=== PATIENT | female | born 1960 | race Caucasian/White ===

== ENCOUNTER 2024-04-21 14:44 | Inpatient (IN) | payer SELFPAY ==
[~2024-04-21] VITALS: Ht 154.9 cm; Wt 70.9 kg
[2024-04-21 15:37] LABS: BASOPHILS # (AUTO) 0.05 K/uL (0.00-0.20); BASOPHILS % (AUTO) 0.4 % (0.0-5.0); EOSINOPHILS # (AUTO) 0.02 K/uL (0.00-0.70); EOSINOPHILS % (AUTO) 0.2 % (0.0-8.0); HEMATOCRIT 44.4 % (36-48); IMMATURE GRANULOCYTE ABSOLUTE 0.09 K/uL (0-1); LYMPHOCYTES # (AUTO) 2.7 K/uL (1.0-4.8); LYMPHOCYTES % (AUTO) 20.6 % (21.0-51.0); MEAN CORPUSCULAR HEMOGLOBIN 31.3 pg (27.0-33.0); MEAN CORPUSCULAR HGB CONC 33.1 g/dL (32.0-36.0); MEAN CORPUSCULAR VOLUME 94.7 fL (79-99); MONOCYTES # (AUTO) 0.8 K/uL (0.1-1.0); MONOCYTES % (AUTO) 6.5 % (3.0-13.0); NEUTROPHILS # (AUTO) 9.2 K/uL (1.8-7.7); NEUTROPHILS % (AUTO) 71.6 % (40.0-77.0); PLATELET COUNT (AUTO) 489 K/uL (130-400); RED BLOOD CELL COUNT(AUTO) 4.69 MIL/uL (4.00-5.50); RED CELL DISTRIBUTION WIDTH 13.3 % (11.0-15.5); WHITE BLOOD COUNT (AUTO) 12.9 K/uL (4.8-10.8)
[2024-04-21 15:45] LABS: CREATININE 0.8 mg/dL (0.5-1.0); POTASSIUM 3.9 mmol/L (3.5-5.1)
[2024-04-21 16:01] LABS: B-TYPE NATRIURETIC PEPTIDE 9 pg/mL (0-100)
[2024-04-21] MEDS: FAMOTIDINE 20MG VIAL IV ONE (16:09)
[2024-04-21] MEDS: ONDANSETRON 4MG INJ IVP ONE (16:09)
[2024-04-21] MEDS: 0.9%NACL 1000ML 1,000 ML IV ONE (16:09)
[2024-04-21] MEDS: MORPHINE 2 MG SYG IVP ONE (16:09)
[2024-04-21 16:41] LABS: ABG BASE EXCESS -21.5 mmol/L (-2.0-3.0); ABG HCO3 5.4 mmol/L (21.0-28.0); ABG OXYGEN SATURATION 96.7 % (95.0-99.0); ABG PCO2 17 mmHg (32-45); PO2, ARTERIAL BG 110.7 mmHg (83.0-108.0); VENT MODE, BG RA (ROOM AIR)
[2024-04-21 16:44] LABS: ALCOHOL, BLOOD 4 mg/dL (0-10)
[2024-04-21 16:49] LABS: SALICYLATE < 2.8 mg/dL (2.8-20.0)
[2024-04-21] MEDS: POTASSIUM CHLORIDE 10MEQ/100ML 100 ML IV PRN (16:53)
[2024-04-21] MEDS: 0.9%NACL 1000ML 1,000 ML IV SCH (16:54)
[2024-04-21 17:20] LABS: CREATININE 0.7 mg/dL (0.5-1.0); POTASSIUM 3.8 mmol/L (3.5-5.1)
[2024-04-21] MEDS: D5W-1/2 NS/20MEQ KCL 1,000 ML IV SCH (17:39)
[2024-04-21] MEDS: INSULIN REGULAR, HUMAN 3ML 100 UNIT in 0.9%NACL 100ML 100 ML IV SCH (17:40)
[2024-04-21 18:19] LABS: HEMOGLOBIN A1C 9.5 % (4.0-6.0)
[2024-04-21 18:22] LABS: APPEARANCE,URINE CLEAR (CLEAR); BILIRUBIN,URINE NEGATIVE (NEGATIVE); COLOR,URINE COLORLESS (YELLOW); GLUCOSE, URINE (UA) >=1000 mg/dL (NEGATIVE); KETONES,URINE 150 mg/dL (NEGATIVE); LEUKOCYTE ESTERASE ,URINE NEGATIVE Leu/uL (NEGATIVE); NITRATE,URINE NEGATIVE (NEGATIVE); PROTEIN,URINE 20 mg/dL (NEGATIVE); UROBILINOGEN,URINE 0.2 mg/dL (0.2-1.0)
[2024-04-21] MEDS ORDERED: OMEP40CA21 PO (18:29)
[2024-04-21] MEDS ORDERED: EMPA25TA PO (18:29)
[2024-04-21] MEDS ORDERED: INSREG SQ (18:29)
[2024-04-21] MEDS ORDERED: DULO60CA64 PO (18:29)
[2024-04-21] MEDS ORDERED: ATOR40TA71 PO (18:29)
[2024-04-21] MEDS ORDERED: LIRA0.6P2 SQ (18:29)
[2024-04-21] MEDS ORDERED: AMLO5TAB4 PO (18:29)
[2024-04-21 18:31] LABS: THYROID STIMULATING HORMONE 1.05 uIU/mL (0.36-3.74)
[2024-04-21 18:38] LABS: ADD UA MICROSCOPIC YES
[2024-04-21 18:40] LABS: MUCUS,URINE RARE LPF (None Seen); SQUAMOUS EPITHELIAL CELL,UR RARE /HPF (0-2)
[2024-04-21 18:53] LABS: SARS-CoV-2, RNA, NAAT NEGATIVE SARS CoV-2 (NEGATIVE)
[2024-04-21 18:57] LABS: INFLUENZA TYPE A Negative For Type A (NEGATIVE); INFLUENZA TYPE B Negative For Type B (NEGATIVE)
[2024-04-21 21:03] LABS: CREATININE 0.7 mg/dL (0.5-1.0); POTASSIUM 3.8 mmol/L (3.5-5.1)
[2024-04-21 22:33] VITALS: BP 138/57; PULSE 74; RESP 19
[2024-04-21 22:45] VITALS: BP 133/65; PULSE 83; RESP 18
[2024-04-21 23:00] VITALS: BP 148/57; PULSE 73; RESP 18; O2SAT 98
[2024-04-21 23:15] VITALS: BP 135/49; PULSE 72; RESP 19
[2024-04-21 23:30] VITALS: BP 136/49; PULSE 72; RESP 18
[2024-04-21 23:45] VITALS: BP 141/55; PULSE 71; RESP 19
[2024-04-21 23:58] LABS: CREATININE 0.6 mg/dL (0.5-1.0); POTASSIUM 4.1 mmol/L (3.5-5.1)
[2024-04-22] VITALS (55 sets, daily range): BP systolic 117–165; BP diastolic 53–79; PULSE 66–82; RESP 12–24; O2SAT 97–98
[2024-04-22 01:43] LABS: TRIGLYCERIDES 136 mg/dL (30-200)
[2024-04-22 01:43] LABS: ABG BASE EXCESS -18.3 mmol/L (-2.0-3.0); ABG HCO3 8.1 mmol/L (21.0-28.0); ABG OXYGEN SATURATION 96.5 % (95.0-99.0); ABG PCO2 23 mmHg (32-45); ABG PH 7.176 (7.35-7.450); PO2, ARTERIAL BG 104.1 mmHg (83.0-108.0); VENT MODE, BG RA (ROOM AIR)
[2024-04-22] MEDS: SODIUM BICARB 50MEQ 50ML VIAL IV ONE (02:30)
[2024-04-22] MEDS: SODIUM BICARB 50MEQ 50ML VIAL 50 ML ONE (02:52)
[2024-04-22] MEDS ORDERED: MAGNESIUM 2GM PREMIX 50ML 50 ML IV PRN (03:00)
[2024-04-22 04:30] LABS: CREATININE 0.5 mg/dL (0.5-1.0); MAGNESIUM 1.7 mg/dL (1.80-2.40)
[2024-04-22 05:26] LABS: ABG BASE EXCESS -16.5 mmol/L (-2.0-3.0); ABG HCO3 8.7 mmol/L (21.0-28.0); ABG PCO2 21 mmHg (32-45); CARBON MONOXIDE 0.9; VENT MODE, BG RA (ROOM AIR)
[2024-04-22 07:32] LABS: CREATININE 0.6 mg/dL (0.5-1.0); POTASSIUM 3.7 mmol/L (3.5-5.1)
[2024-04-22] MEDS: MAGNESIUM 2GM PREMIX 50ML 50 ML IV SCH (09:03)
[2024-04-22] MEDS: ENOXAPARIN SODIUM 30 MG/0.3 ML SQ SCH (09:03)
[2024-04-22] MEDS: POTASSIUM CHLORIDE 10% ELIXIR 20 MEQ/15 ML UDCUP PO PRN (09:20)
[2024-04-22] MEDS: POTASSIUM CHLORIDE 10% ELIXIR 20 MEQ/15 ML UDCUP ONE (09:20)
[2024-04-22] MEDS ORDERED: LACTATED RINGERS 1000ML 1,000 ML IV SCH (11:30)
[2024-04-22 12:11] LABS: CREATININE 0.6 mg/dL (0.5-1.0); POTASSIUM 3.5 mmol/L (3.5-5.1)
[2024-04-22] MEDS: KCL 20 MEQ ERTAB PO PRN (14:50)
[2024-04-22 15:32] LABS: CREATININE 0.6 mg/dL (0.5-1.0); POTASSIUM 3.4 mmol/L (3.5-5.1)
[2024-04-22] MEDS: POTASSIUM CHLORIDE 20MEQ/100ML 100 ML IV PRN (17:58)
[2024-04-22] MEDS: D5W-1/2 NS/20MEQ KCL 1,000 ML IV SCH (17:58)
[2024-04-22 19:44] LABS: CREATININE 0.5 mg/dL (0.5-1.0); POTASSIUM 3.3 mmol/L (3.5-5.1)
[2024-04-22] MEDS: ATORVASTATIN 40 MG TABLET PO SCH (20:14)
[2024-04-22] MEDS: ZOSYN 3.375GM +NS 50ML IV SCH (23:12)
[2024-04-22 23:31] LABS: CREATININE 0.5 mg/dL (0.5-1.0); POTASSIUM 3.8 mmol/L (3.5-5.1)
[2024-04-23] VITALS (21 sets, daily range): BP systolic 112–157; BP diastolic 60–83; PULSE 64–89; RESP 11–22; O2SAT 98
[2024-04-23 03:49] LABS: HEMATOCRIT 35.3 % (36-48); MEAN CORPUSCULAR HEMOGLOBIN 32.4 pg (27.0-33.0); MEAN CORPUSCULAR HGB CONC 35.7 g/dL (32.0-36.0); MEAN CORPUSCULAR VOLUME 90.7 fL (79-99); RED BLOOD CELL COUNT(AUTO) 3.89 MIL/uL (4.00-5.50); RED CELL DISTRIBUTION WIDTH 13.3 % (11.0-15.5); WHITE BLOOD COUNT (AUTO) 9.6 K/uL (4.8-10.8)
[2024-04-23 04:21] LABS: ALBUMIN 2.7 g/dL (3.5-5.0); BILIRUBIN,TOTAL 0.7 mg/dL (0.2-1.0); CREATININE 0.5 mg/dL (0.5-1.0); MAGNESIUM 2.3 mg/dL (1.80-2.40); POTASSIUM 4.3 mmol/L (3.5-5.1); TOTAL PROTEIN, SERUM 6.2 g/dL (6.0-8.3)
[2024-04-23] MEDS: amLODIPine 5 MG TAB PO SCH (08:11)
[2024-04-23] MEDS: DULOXETINE HCL 30 MG CAP PO SCH (08:11)
[2024-04-23 10:10] LABS: CREATININE 0.5 mg/dL (0.5-1.0)
[2024-04-23] MEDS: INSULIN GLARGINE 100 UNITS/ML 10 ML VIAL SQ SCH (10:16)
[2024-04-23] MEDS: INSULIN HUMULIN R 100 UNIT/ML 3ML SQ SCH ×2 (17:03→17:04)
[2024-04-23] MEDS ORDERED: OCTREOTIDE ACETATE 100 MCG/ML AMP IV ONE (21:00)
[2024-04-24] VITALS (9 sets, daily range): BP systolic 122–137; BP diastolic 50–64; PULSE 66–98; RESP 10–16; O2SAT 98
[2024-04-24 05:15] LABS: ALBUMIN 2.6 g/dL (3.5-5.0); BILIRUBIN,TOTAL 0.5 mg/dL (0.2-1.0); CREATININE 0.4 mg/dL (0.5-1.0); POTASSIUM 3.1 mmol/L (3.5-5.1); TOTAL PROTEIN, SERUM 5.9 g/dL (6.0-8.3)
[2024-04-24] MEDS: INSULIN HUMULIN R 100 UNIT/ML 3ML SQ SCH (07:19)
== END 2024-04-24 10:31 | disposition home or self-care (01) | DRG 871 ==
LOC: EDH 14:44 → EDHIP 17:55 → 2CH 22:33
PROVIDERS: ADMIT Internal Medicine; ATTEND Internal Medicine
DX: A41.9 Sepsis, unspecified organism (principal); E11.10 Type 2 diabetes mellitus with ketoacidosis without coma; I27.20 Pulmonary hypertension, unspecified; I34.0 Nonrheumatic mitral (valve) insufficiency; Z20.822 Contact with and (suspected) exposure to COVID-19; E78.00 Pure hypercholesterolemia, unspecified; E86.0 Dehydration; K59.00 Constipation, unspecified; I10 Essential (primary) hypertension; E66.9 Obesity, unspecified; Z79.4 Long term (current) use of insulin; Z90.710 Acquired absence of both cervix and uterus; Z91.199 Patient's noncompliance with other medical treatment and regimen due to unspecified reason; Z68.29 Body mass index [BMI] 29.0-29.9, adult; Z79.899 Other long term (current) drug therapy; Z79.84 Long term (current) use of oral hypoglycemic drugs
CPT/HCPCS: 36415; 36600; 71045; 80048; 80053; 81001; 82010; 82435; 82803; 82947; 82948; 83036; 83605; 83690; 83735; 83880; 84132; 84145; 84295; 84443; 84478; 85018; 85025; 85027; 86140; 87040; 87635; 87804; 93005; 93306; 93356; 96365; 96375; 99291; G0378; G0481; J1650; J1815; J2270; J2405; J2543; J3475; J3480; J3490; J7030